=== PATIENT | male | born 1940 | race Caucasian/White ===

== ENCOUNTER 2022-05-22 14:30 | Inpatient (IN) | payer OTHER ==
[~2022-05-22] VITALS: Ht 175.3 cm; Wt 77.0 kg
[~2022-05-22 14:30] MED LIST: Bactrim Ds Tab1 EACH PO; CEPH500 PO
[2022-05-22 15:27] LABS: BASOPHILS ABSOLUTE AUTO 0.02 K/mm3 (0.00-0.23); BASOPHILS PERCENT AUTO 0 % (0-2); EOSINOPHILS ABSOLUTE AUTO 0.04 K/mm3 (0.00-0.68); EOSINOPHILS PERCENT AUTO 0 % (0-6); Hematocrit 46.3 % (37.0-53.0); Hemoglobin 15.5 g/dL (13.5-17.5); IMMATURE GRAN ABSOLUTE AUTO 0.07 K/mm3 (0.00-0.10); IMMATURE GRAN PERCENT AUTO 1 % (0-1); LYMPHOCYTES PERCENT AUTO 28 % (21-46); MONOCYTES ABSOLUTE AUTO 1.11 K/mm3 (0.16-1.47); MONOCYTES PERCENT AUTO 8 % (4-13); Mean Corpuscular HGB 33.3 pg (26.0-34.0); Mean Corpuscular HGB Conc 33.5 g/dL (31.5-36.5); Mean Corpuscular Volume 99 fL (80-100); Mean Platelet Volume 10.8 fL (9.1-12.4); NEUTROPHILS ABSOLUTE AUTO 9.02 K/mm3 (1.96-9.15); NEUTROPHILS PERCENT AUTO 64 % (41-73); Platelet Count 227 K/mm3 (150-400); RDW Coefficient Variation 11.9 % (11.7-14.2); RDW Standard Deviation 43.8 fL (35.1-46.3); Red Blood Cell Count 4.66 M/mm3 (4.30-5.90); White Blood Cell Count 14.16 K/mm3 (4.00-11.30)
[2022-05-22 15:50] LABS: Albumin, Blood 2.2 g/dL (3.4-5.0); Albumin/Globulin Ratio 0.4 (0.8-1.8); Bilirubin, Total 1.5 mg/dL (0.1-1.0); Bun/Creatinine Ratio 22.5 (12.0-20.0); Calcium, Blood 8.8 mg/dL (8.5-10.1); Creatinine, Blood 1.02 mg/dL (0.60-1.20); Globulin, Blood 5.7 g/dL (2.2-4.0); Potassium, Blood 3.8 mmol/L (3.5-5.5); Total Protein, Blood 7.9 g/dL (6.4-8.2)
[2022-05-23 05:02] LABS: BASOPHILS ABSOLUTE AUTO 0.02 K/mm3 (0.00-0.23); BASOPHILS PERCENT AUTO 0 % (0-2); EOSINOPHILS ABSOLUTE AUTO 0.08 K/mm3 (0.00-0.68); EOSINOPHILS PERCENT AUTO 1 % (0-6); Hemoglobin 14.4 g/dL (13.5-17.5); IMMATURE GRAN ABSOLUTE AUTO 0.04 K/mm3 (0.00-0.10); IMMATURE GRAN PERCENT AUTO 0 % (0-1); LYMPHOCYTES ABSOLUTE AUTO 1.82 K/mm3 (0.84-5.20); LYMPHOCYTES PERCENT AUTO 19 % (21-46); MONOCYTES ABSOLUTE AUTO 0.85 K/mm3 (0.16-1.47); MONOCYTES PERCENT AUTO 9 % (4-13); Mean Corpuscular HGB 33.3 pg (26.0-34.0); Mean Corpuscular HGB Conc 33.5 g/dL (31.5-36.5); Mean Corpuscular Volume 100 fL (80-100); Mean Platelet Volume 11.1 fL (9.1-12.4); NEUTROPHILS ABSOLUTE AUTO 6.64 K/mm3 (1.96-9.15); NEUTROPHILS PERCENT AUTO 70 % (41-73); Platelet Count 186 K/mm3 (150-400); RDW Coefficient Variation 11.9 % (11.7-14.2); RDW Standard Deviation 43.4 fL (35.1-46.3); Red Blood Cell Count 4.32 M/mm3 (4.30-5.90); White Blood Cell Count 9.45 K/mm3 (4.00-11.30)
[2022-05-23 05:58] LABS: Albumin, Blood 1.9 g/dL (3.4-5.0); Albumin/Globulin Ratio 0.4 (0.8-1.8); Bilirubin, Total 1.2 mg/dL (0.1-1.0); Calcium, Blood 8.1 mg/dL (8.5-10.1); Globulin, Blood 4.9 g/dL (2.2-4.0); Potassium, Blood 3.6 mmol/L (3.5-5.5); Total Protein, Blood 6.8 g/dL (6.4-8.2)
--- NOTE | 2022-05-23 07:58 | NUR ---
SUMMARY PT ADMITTED THIS SHIFT WITH PLANS FOR DR HENDRICKS INTERVENTION.CX CALLED TO ANS SERVICE.PT IS DAILY ETOH DRINKER AND DAY RN AWARE AND WILL F/U REGARDING POSSIBLE NEED FOR CWA.
[2022-05-23 08:18] LABS: International Normalized Ratio 1.28; Prothrombin Time Results 13.2 Sec (9.7-11.5)
[2022-05-23 14:32] LABS: Influenza A, PCR NEGATIVE (NEGATIVE); Influenza B, PCR NEGATIVE (NEGATIVE); Resp Syncytial Virus, PCR NEGATIVE (NEGATIVE); SARS-Cov-2 (COVID-19) PCR, MMC NEGATIVE (NEGATIVE)
--- NOTE | 2022-05-23 16:05 | NUR ---
TO [facility] VIA HOSPITAL BED
--- NOTE | 2022-05-23 17:33 | NUR ---
ARRIVAL FROM DRAIN PLACEMENT ALERT, ORIENTED, QUIET. ABD SOFT w/ PIGTAIL DRAIN TO GRAVITY TO RUQ, SECURE. SCANT DRNG TO TUBING BUT NONE IN BAG. YELLOW-HIREN, MILKY GREEN. LUNGS CLEAR. DENIES PAIR OR NAUSEA. LOW FAT DIET STARTED.
--- NOTE | 2022-05-23 19:10 | NUR ---
BOUT OF SHAKING & FEELING COLD RESOLVED BY TYLENOL. VSS.
--- NOTE | 2022-05-24 07:51 | NUR ---
POD 1 S/P CHOLECYSTOCTOMY DRAIN PLACEMENT. PT VSS T/O NIGHT. DRAIN HAD APPX 25ML PURULANT SANG DRNG. PT DENIED PAIN/N/V, ZAY REG PO, ILEOSTOMY PUTTING OUT LIQ BROWN STOOL AND GAS. PT VOIDING URINE W/O DIFFICULTY. IV S/L X ABX. PT UP INDEP IN ROOM. AWAITING DC PLANS.
[2022-05-24] MEDS ORDERED: VISBIOME 112.51 EACH PO (10:17)
[2022-05-24] MEDS ORDERED: AMOCLA875 PO (10:18)
--- NOTE | 2022-05-24 11:11 | NUR ---
DISCHARGE INSTRUCTIONS DISCUSSED. [facility].
--- NOTE | 2022-05-24 11:53 | NUR ---
[facility] AR[facility]IV[facility]. WC OUT w/ TRANSPORT.
== END 2022-05-24 11:54 | disposition home or self-care (01) | DRG 445 ==
LOC: ER 14:30 → SURS 16:48
PROVIDERS: Radiology Diagnostic Radiology; Student in an Organized Health Care Education/Training Program; ADMIT Internal Medicine
PROC: 0F9430Z Drainage of Gallbladder with Drainage Device, Percutaneous Approach (ICD-10-PCS; principal; 2022-05-22)
DX: K81.0 Acute cholecystitis (principal); K82.A2 Perforation of gallbladder in cholecystitis; Z20.822 Contact with and (suspected) exposure to COVID-19; Z28.21 Immunization not carried out because of patient refusal; I10 Essential (primary) hypertension; F32.A Depression, unspecified; F41.9 Anxiety disorder, unspecified; B96.1 Klebsiella pneumoniae [K. pneumoniae] as the cause of diseases classified elsewhere; Z93.2 Ileostomy status; Z87.891 Personal history of nicotine dependence
CPT/HCPCS: 0241U; 36415; 47490; 76937; 80053; 83605; 83690; 83880; 85025; 85610; 87070; 87077; 87186; 87205; 96365; 99152; 99153; 99285-25; A9270; C1729; C1769; J2250; J2543; J3010; J7030; J7040; Q9967

== ENCOUNTER 2022-07-21 07:52 | Inpatient (IN) | payer OTHER ==
[~2022-07-21] VITALS: Ht 175.3 cm; Wt 75.0 kg
[~2022-07-21 07:52] MED LIST changes: +AMOCLA875 PO; +VISBIOME 112.51 EACH PO
--- NOTE | 2022-07-21 08:34 | NUR ---
PT HAS SMALL SCABBED OVER HEALING LESIONS ON RIGHT ABDOMEN AROUND GALLBLADDER DRAIN TUBE. NEXT TO HIS COLOSTOMY BAG, SKIN REDDENED PT DENIES PAIN. DARK GREEN DRAINAGE FROM DRAIN TUBE. WILL CONSULT DR FERNANDO. Ambulatory in Day Surgery History, Chart, Medications and Allergies reviewed before start of procedure. Patient confirms NPO status and agrees with scheduled surgery. Pre-Op teaching done. Pt verbalizes understanding. PT BELONGINGS PLACED [facility].
--- NOTE | 2022-07-21 10:56 | NUR ---
PT DENTURES TAKEN TO PACU FOR SAFEKEEPING.
--- NOTE | 2022-07-21 13:51 | NUR ---
07/21/22 1353 Ann Saavedra PROCRDURE @ [id number]
--- NOTE | 2022-07-21 16:37 | NUR ---
received the patient from PACU at 1600. Vital signs are stable. He is alert, oriented to person, place, ongoing events. Slightly fuzzy on the date (states March, oh no, July 1921). Appears a little sleepy. EFRA in place over transverse abodminal area, functioning normally. Mepilex in place on the right lower chest wall, three bandaids over the transverse upper abdomen, and LUIS drain on the right lower quadrant of abdomen, above his ileostomy site. Serosanginous drainage, about 20 cc, noted in the LUIS. Bleeding from the insertion site of the LUIS noted, serosanginous fluid. LUIS drain was stripped to ensure patency. Dr. Morales at bedside, dressing was changed. New order rec;d for FFP, 1 unit. Pt was repositioned side to side and new drainage, again serosanginous, small amount, noted from the LUIS insertion site. Pressure was applied and it has stopped. Pt is sleeping, but he did deny pain/nausea while awake.
--- NOTE | 2022-07-21 16:59 | NUR ---
Discharge instructions were reviewed with the patient and his at bedside. Questions were answered. Telemetry was removed, Zio patch remains noted in place on the left chest wall. IV left wrist was removed, secured with gauze and coban. He said that he does not need assistance to get dressed and ready to go. Wheelchair transport provided by [facility] Andreina Bryan.
--- NOTE | 2022-07-21 18:53 | NUR ---
pt is sleeping, but awakens easily. States that he is having very little bit of pain in his abdomen. Blood pressures have been low, so pain control will be considered very conservatively, per orders. Blood transfusion nearly complete, then plan to start FFP transfusion as ordered.
[2022-07-21 22:11] LABS: Hematocrit 39.4 % (37.0-53.0); Hemoglobin 13.5 g/dL (13.5-17.5); Mean Corpuscular HGB Conc 34.3 g/dL (31.5-36.5); Mean Corpuscular Volume 93 fL (80-100); Mean Platelet Volume 9.9 fL (9.1-12.4); Platelet Count 207 K/mm3 (150-400); RDW Coefficient Variation 14.7 % (11.7-14.2); RDW Standard Deviation 50.9 fL (35.1-46.3); Red Blood Cell Count 4.22 M/mm3 (4.30-5.90); White Blood Cell Count 14.69 K/mm3 (4.00-11.30)
[2022-07-22 04:06] LABS: BASOPHILS ABSOLUTE AUTO 0.01 K/mm3 (0.00-0.23); BASOPHILS PERCENT AUTO 0 % (0-2); EOSINOPHILS PERCENT AUTO 0 % (0-6); Hematocrit 36.3 % (37.0-53.0); Hemoglobin 12.8 g/dL (13.5-17.5); IMMATURE GRAN ABSOLUTE AUTO 0.07 K/mm3 (0.00-0.10); IMMATURE GRAN PERCENT AUTO 1 % (0-1); LYMPHOCYTES ABSOLUTE AUTO 3.07 K/mm3 (0.84-5.20); LYMPHOCYTES PERCENT AUTO 22 % (21-46); MONOCYTES ABSOLUTE AUTO 0.42 K/mm3 (0.16-1.47); MONOCYTES PERCENT AUTO 3 % (4-13); Mean Corpuscular HGB 32.5 pg (26.0-34.0); Mean Corpuscular HGB Conc 35.3 g/dL (31.5-36.5); Mean Corpuscular Volume 92 fL (80-100); NEUTROPHILS ABSOLUTE AUTO 10.21 K/mm3 (1.96-9.15); NEUTROPHILS PERCENT AUTO 74 % (41-73); Platelet Count 212 K/mm3 (150-400); RDW Coefficient Variation 14.7 % (11.7-14.2); RDW Standard Deviation 50.1 fL (35.1-46.3); Red Blood Cell Count 3.94 M/mm3 (4.30-5.90); White Blood Cell Count 13.78 K/mm3 (4.00-11.30)
[2022-07-22 04:27] LABS: Magnesium, Blood 1.7 mg/dL (1.6-2.4)
[2022-07-22 04:28] LABS: Bun/Creatinine Ratio 18.3 (12.0-20.0); Calcium, Blood 7.9 mg/dL (8.5-10.1); Creatinine, Blood 0.87 mg/dL (0.60-1.20); Phosphorus, Blood 3.2 mg/dL (2.5-4.9); Potassium, Blood 4.2 mmol/L (3.5-5.5)
--- NOTE | 2022-07-22 06:22 | NUR ---
SHIFT SUMMARY: A&OX4. DROWSY AT BEGINNING OF SHIFT, BECOMING MORE ALERT TIME PROGRESSES. SECOND UNIT OF PRBC AND FFP INFUSED. PT TOLERATED WELL. BP'S IMPROVED WITH SBP > 100, MAP > 65. PAIN IN PT'S INCISION SITE IN ABDOMEN MEDICATED WITH GOOD RESULT WITH PO OXYCODON, SEE EMAR. EFRA DRESSING IN PLACE ON TRANSVERS DRESSING IN PLACE WITH TWO PIN HEAD SIZED OLD SEROSANG DRAINAGE SITES PRESENT. ILEOSTOMY PUTTING OUT SMALL AMOUNT OF LIQUID GREEN STOOL. LUIS DRAIN IN RUQ PUTING OUT SEROSANG FLUID, TUBING STRIPPED DUE TO LEAKAGE AROUND INSERTION SITE. PT TOERATES WITHOUT COMPLAINTS OF INCREASED PAIN. O2 SATS > 90% ON RA. DENIES ANY SOB. PT ALSO DENIES ANY CHEST PAIN, NAUSEA, OR VOMITING. JARAMILLO CATHTER IN PLACE DRAINING WITHOUT DIFFICULTY.
--- NOTE | 2022-07-22 17:20 | NUR ---
TRANSFER: PT TO ROOM 209 FROM PCU. PT ALERT AND ORIENTED. CLEAR DINNER TRAY AT BEDSIDE, PT TOLERATING WELL. PT HAS TRANSVERSE INCISION WITH SEROSANGUINOUS DRAINAGE. LUIS ALSO WITH S/S DRAINAGE. PT STATES PAIN AT TOLERABLE LEVEL AT THIS TIME. JARAMILLO IN PLACE, BLADDER TRAINING STARTED PRIOT TO TRANSFER. ILEOSTOMY WITH LIGHT GREEN STOOL. WILL CONT TO MONITOR.
--- NOTE | 2022-07-22 18:49 | NUR ---
PT HAS HAD NO CHANGES SINCE TRANSFER. PT HAD 15CC TOTAL INTO LUIS THIS SHIFT. PT CONT TO HAVE LEAKING FROM EFRA DRESSING. CONT TO STATE PAIN TOLERABLE. ADVANCED TO FL DIET FOR AM. ILEOSTOMY DRAINING WELL. ENCOURAGED AMBULATION AND GETTING UP TO CHAIR. PT CALLS APPROPRIATELY NEEDED.
[2022-07-23 04:51] LABS: Hematocrit 30.6 % (37.0-53.0); Hemoglobin 10.6 g/dL (13.5-17.5); Mean Corpuscular HGB Conc 34.6 g/dL (31.5-36.5); Mean Corpuscular Volume 92 fL (80-100); Mean Platelet Volume 10.2 fL (9.1-12.4); Platelet Count 187 K/mm3 (150-400); RDW Coefficient Variation 14.6 % (11.7-14.2); RDW Standard Deviation 49.5 fL (35.1-46.3); Red Blood Cell Count 3.31 M/mm3 (4.30-5.90); White Blood Cell Count 17.22 K/mm3 (4.00-11.30)
[2022-07-23 05:14] LABS: Albumin, Blood 2.1 g/dL (3.4-5.0); Albumin/Globulin Ratio 0.6 (0.8-1.8); Bilirubin, Total 0.5 mg/dL (0.1-1.0); Bun/Creatinine Ratio 17.2 (12.0-20.0); Creatinine, Blood 0.82 mg/dL (0.60-1.20); Globulin, Blood 3.8 g/dL (2.2-4.0); Potassium, Blood 4.3 mmol/L (3.5-5.5); Total Protein, Blood 5.9 g/dL (6.4-8.2)
--- NOTE | 2022-07-23 06:48 | NUR ---
POD 2 S/P OPEN RANDY. PT VSS T/O NIGHT. EFRA DRESSING W/SEAL AND SX INTACT. NO NEW DRNG NOTED FROM LUIS SITE. LUIS PUT OUT SCANT AMT LIGHT PINK SS DRNG APPX 5 ML. PT DENIED PAIN/N/V, ILEOSTOMY PUTTING OUT GAS AND LIQ GREEN STOOL. BLADDER TRAINING CONT T/O NIGHT, JARAMILLO D/C THIS AM, AWAITING VOID. PT DECLINED OFFERS FOR PAIN MEDS. PLAN TO MOBILIZE AND ADVANCE DIET PT ZAY.
--- NOTE | 2022-07-23 18:35 | NUR ---
SHIFT SUMMARY PT POD #2 FOR LAP CONVERTED TO OPEN RANDY. TRANSVERSE EFRA DRY AND INTACT. LUIS DRAIN PUTTING OUT MINIMAL AMOUNT OF SS FLUID. ILEOSTOMY PUTTING OUT GAS AND LIQUID STOOL. PT TREATED FOR PAIN PER EMR. VSS.
[2022-07-24 05:05] LABS: BASOPHILS ABSOLUTE AUTO 0.01 K/mm3 (0.00-0.23); BASOPHILS PERCENT AUTO 0 % (0-2); EOSINOPHILS ABSOLUTE AUTO 0.06 K/mm3 (0.00-0.68); EOSINOPHILS PERCENT AUTO 1 % (0-6); Hematocrit 31.4 % (37.0-53.0); Hemoglobin 10.8 g/dL (13.5-17.5); IMMATURE GRAN ABSOLUTE AUTO 0.03 K/mm3 (0.00-0.10); IMMATURE GRAN PERCENT AUTO 0 % (0-1); LYMPHOCYTES ABSOLUTE AUTO 3.19 K/mm3 (0.84-5.20); LYMPHOCYTES PERCENT AUTO 34 % (21-46); MONOCYTES ABSOLUTE AUTO 0.75 K/mm3 (0.16-1.47); MONOCYTES PERCENT AUTO 8 % (4-13); Mean Corpuscular HGB 32.3 pg (26.0-34.0); Mean Corpuscular HGB Conc 34.4 g/dL (31.5-36.5); Mean Corpuscular Volume 94 fL (80-100); Mean Platelet Volume 10.6 fL (9.1-12.4); NEUTROPHILS ABSOLUTE AUTO 5.28 K/mm3 (1.96-9.15); NEUTROPHILS PERCENT AUTO 57 % (41-73); Platelet Count 190 K/mm3 (150-400); RDW Coefficient Variation 14.6 % (11.7-14.2); RDW Standard Deviation 49.9 fL (35.1-46.3); Red Blood Cell Count 3.34 M/mm3 (4.30-5.90); White Blood Cell Count 9.32 K/mm3 (4.00-11.30)
--- NOTE | 2022-07-24 06:15 | NUR ---
POD 3 S/P OPEN RANDY. PT VSS. EFRA DRESSING CDI W/SEAL AND SX INTACT. LUIS PUT OUT 50ML SS DRNG. OSTOMY PUTTING OUT GAS+LIQ STOOL. PT DENIED N/V. PT VOIDING DARK YELLOW URINE, PO FLUIDS ENC. PT DENIED PAIN, DECLINED NEED FOR PAIN MEDS. PLAN TO MOBILIZE PT ZAY.
[2022-07-24 06:24] LABS: Albumin/Globulin Ratio 0.5 (0.8-1.8); Bilirubin, Total 0.7 mg/dL (0.1-1.0); Bun/Creatinine Ratio 15.9 (12.0-20.0); Creatinine, Blood 0.88 mg/dL (0.60-1.20); Globulin, Blood 3.8 g/dL (2.2-4.0); Potassium, Blood 3.8 mmol/L (3.5-5.5); Total Protein, Blood 5.8 g/dL (6.4-8.2)
--- NOTE | 2022-07-24 14:00 | NUR ---
DR FERNANDO AT BEDSIDE. REMOVED LUIS DRAIN.
[2022-07-24] MEDS ORDERED: ASPI81CH PO (14:05)
[2022-07-24] MEDS ORDERED: OXYC5 PO (14:05)
--- NOTE | 2022-07-24 14:42 | NUR ---
DISCHARGE PATIENT REPORTS NO PAIN. TOLERATING REGULAR DIET, DENIES N/V. AMBULATING WELL WITHIN ROOMS & HALLWAYS W/O ASSISTANCE, EDUCATED PATIENT ON EFRA DRESSING. DRESSING OVER PREVIOUS LAP SITES PLACED. DISCUSSED DISCHARGE INSTRUCTIONS. ESCORTED OUT VIA W/C.
== END 2022-07-24 14:39 | disposition home or self-care (01) | DRG 414 ==
LOC: ORSCMMR 07:52 → ORD 10:00 → PCU 16:17 → ORSCMMR 22:45 → PCU 22:45 → SURS 07-22 17:20
PROVIDERS: ADMIT Surgery
PROC: 04Q30ZZ Repair Hepatic Artery, Open Approach (ICD-10-PCS; 2022-07-21)
PROC: 8E0W4CZ Robotic Assisted Procedure of Trunk Region, Percutaneous Endoscopic Approach (ICD-10-PCS; 2022-07-21)
PROC: BF131ZZ Fluoroscopy of Gallbladder and Bile Ducts using Low Osmolar Contrast (ICD-10-PCS; 2022-07-21)
PROC: 0W9G00Z Drainage of Peritoneal Cavity with Drainage Device, Open Approach (ICD-10-PCS; 2022-07-21)
PROC: 30233N1 Transfusion of Nonautologous Red Blood Cells into Peripheral Vein, Percutaneous Approach (ICD-10-PCS; 2022-07-21)
PROC: 30233K1 Transfusion of Nonautologous Frozen Plasma into Peripheral Vein, Percutaneous Approach (ICD-10-PCS; 2022-07-21)
PROC: 0FT40ZZ Resection of Gallbladder, Open Approach (ICD-10-PCS; principal; 2022-07-21 10:00)
PROC: 0FJ44ZZ Inspection of Gallbladder, Percutaneous Endoscopic Approach (ICD-10-PCS; 2022-07-21 10:00)
DX: K81.2 Acute cholecystitis with chronic cholecystitis (principal); R57.8 Other shock; K82.A2 Perforation of gallbladder in cholecystitis; D62 Acute posthemorrhagic anemia; K91.71 Accidental puncture and laceration of a digestive system organ or structure during a digestive system procedure; K66.0 Peritoneal adhesions (postprocedural) (postinfection); I95.9 Hypotension, unspecified; F10.10 Alcohol abuse, uncomplicated; F41.9 Anxiety disorder, unspecified; F32.A Depression, unspecified; I10 Essential (primary) hypertension; Z98.890 Other specified postprocedural states; Z86.73 Personal history of transient ischemic attack (TIA), and cerebral infarction without residual deficits; Z90.49 Acquired absence of other specified parts of digestive tract; Z87.19 Personal history of other diseases of the digestive system; Z87.891 Personal history of nicotine dependence; Z53.31 Laparoscopic surgical procedure converted to open procedure
CPT/HCPCS: 36415; 36430; 74300; 80048; 80053; 83735; 84100; 85025; 85027; 86850; 86900; 86901; 86923; 88304; 97110; 97116; 97166; 97530; 97535; A9270; J0171; J0690; J1100; J1650; J2370; J2405; J2704; J2795; J3010; J7040; J7120; P9016; P9059